=== PATIENT | female | born 1950 | race Caucasian/White ===

== ENCOUNTER → 2023-11-14 14:49 | Outpatient (REF) | payer MEDICARE, BC, SELFPAY | LOC: HWRAD 14:49 | PROVIDERS: ATTENDING PHYSICIAN Family Medicine | DX: R10.31 Right lower quadrant pain (principal); R10.2 Pelvic and perineal pain; M25.551 Pain in right hip | CPT/HCPCS: 73502; 74176 ==

== ENCOUNTER → 2024-07-13 09:46 | Outpatient (REF) | payer MEDICARE, BC, SELFPAY | LOC: HWWDC 09:46 | PROVIDERS: ATTENDING PHYSICIAN Obstetrics & Gynecology; FAMILY PHYSICIAN Family Medicine | DX: Z12.31 Encounter for screening mammogram for malignant neoplasm of breast (principal) | CPT/HCPCS: 77063; 77067 ==

== ENCOUNTER 2024-08-09 06:24 | Day surgery (SDC) | payer MEDICARE, BC, SELFPAY | END 2024-08-09 09:20 | disposition home or self-care (01) | LOC: GI 06:24 | PROVIDERS: ATTENDING PHYSICIAN Internal Medicine Gastroenterology | DX: Z12.11 Encounter for screening for malignant neoplasm of colon (principal); D12.4 Benign neoplasm of descending colon; K55.20 Angiodysplasia of colon without hemorrhage; K57.30 Diverticulosis of large intestine without perforation or abscess without bleeding; Z83.719 Family history of colon polyps, unspecified | CPT/HCPCS: 45385; 88305 ==